=== PATIENT | female | born 1980 | race Caucasian/White ===

== ENCOUNTER → 2017-04-05 | Outpatient (CLI) | payer OTHER ==
[~2017-04-05] MED LIST: BISA5EC PO; CEPH500 PO; LAVAP17G PO; MECL25 PO; MEDR10 PO; OMEP40CA12 PO; OXYACE5T PO; POLY17UD PO; PSYL5.85P PO; RXTRAM50 PO; SERT25; SERT25 PO; TRAM50 PO
[2017-04-07 11:21] LABS: HPV Genotype 16 Not Detected (NOTDET); HPV Genotype 18 Not Detected (NOTDET)
[2017-04-15 16:07] LABS: HPV High Risk Other Not Detected (NOTDET)
== END | disposition home or self-care (01) ==
LOC: OLS 16:27
PROVIDERS: Obstetrics & Gynecology Gynecology
DX: Z12.4 Encounter for screening for malignant neoplasm of cervix (principal)
CPT/HCPCS: 87624; G0123

== ENCOUNTER 2021-12-28 16:13 | Inpatient (IN) | payer OTHER ==
[~2021-12-28] VITALS: Ht 175.3 cm; Wt 76.3 kg
[2021-12-28 17:50] LABS: BASOPHILS ABSOLUTE AUTO 0.04 K/mm3 (0.00-0.23); BASOPHILS PERCENT AUTO 0 % (0-2); EOSINOPHILS ABSOLUTE AUTO 0.07 K/mm3 (0.00-0.68); EOSINOPHILS PERCENT AUTO 1 % (0-6); Hematocrit 32.1 % (33.0-51.0); IMMATURE GRAN ABSOLUTE AUTO 0.07 K/mm3 (0.00-0.10); IMMATURE GRAN PERCENT AUTO 1 % (0-1); LYMPHOCYTES ABSOLUTE AUTO 2.47 K/mm3 (0.84-5.20); LYMPHOCYTES PERCENT AUTO 17 % (21-46); MONOCYTES ABSOLUTE AUTO 0.88 K/mm3 (0.16-1.47); MONOCYTES PERCENT AUTO 6 % (4-13); Mean Corpuscular HGB 29.3 pg (26.0-34.0); Mean Corpuscular HGB Conc 34.3 g/dL (31.5-36.5); Mean Corpuscular Volume 85 fL (80-100); Mean Platelet Volume 11.2 fL (9.1-12.4); NEUTROPHILS ABSOLUTE AUTO 10.84 K/mm3 (1.96-9.15); NEUTROPHILS PERCENT AUTO 75 % (41-73); Platelet Count 239 K/mm3 (150-400); RDW Coefficient Variation 12.8 % (11.7-14.2); RDW Standard Deviation 39.4 fL (35.1-46.3); Red Blood Cell Count 3.76 M/mm3 (3.80-5.20); White Blood Cell Count 14.37 K/mm3 (4.00-11.30)
[2021-12-28] MEDS ORDERED: PRENATAL TABLE1 EAC2 (18:13)
[2021-12-28] MEDS ORDERED: DOC250 PO (18:14)
[2021-12-29 10:08] LABS: PCO2 Cord - Venous 40.9 mmHg (40-50); PO2 Cord - Venous 19.8 mmHg (28-32); pH Umbilical Cord - Venous 7.38 (7.26-7.35)
--- NOTE | 2021-12-29 11:37 | NUR ---
NB WITH TRANSPORT TEAM IN ROOM VISITING MOM.
[2021-12-29] MEDS ORDERED: IBUP800 PO (11:43)
--- NOTE | 2021-12-29 12:32 | NUR ---
PT IS RESTING. WORKING ON DISCHARGE PAPERWORK.
--- NOTE | 2021-12-29 15:47 | NUR ---
andreina is picking up baby at 1600
--- NOTE | 2021-12-29 15:50 | NUR ---
Upon receivinga request from TRA, KASIE Perdue, that the pt wanted her baby blessed, I met Nette in the nursery. The baby, Prince Naidu, is still born. I baptize and bless [place] and sign a document certifying that he has been blessed. I release Prince back to Nette who has [facility] in transit. I will continue to remain available.
== END 2021-12-29 18:20 | disposition home or self-care (01) | DRG 807 ==
LOC: OBS 16:13 → BC 16:14 → OBS 17:06 → BC 17:08
PROVIDERS: ADMIT Advanced Practice Midwife
PROC: 10E0XZZ Delivery of Products of Conception, External Approach (ICD-10-PCS; principal; 2021-12-29)
PROC: 10907ZC Drainage of Amniotic Fluid, Therapeutic from Products of Conception, Via Natural or Artificial Opening (ICD-10-PCS; 2021-12-29)
PROC: 3E0234Z Introduction of Serum, Toxoid and Vaccine into Muscle, Percutaneous Approach (ICD-10-PCS; 2021-12-29)
DX: O60.14X0 Preterm labor third trimester with preterm delivery third trimester, not applicable or unspecified (principal); Z37.0 Single live birth; Z3A.30 30 weeks gestation of pregnancy; Z23 Encounter for immunization
CPT/HCPCS: 36415; 59025; 76815; 82803; 85025; 85460; 86850; 86870; 86900; 86901; 88307; 90715; 96372; A9270; J0290; J0702; J1885; J2210; J2590; J2791; J3475; J7120

== ENCOUNTER → 2023-02-07 | Outpatient (CLI) | payer OTHER ==
[~2023-02-07] MED LIST changes: +DOC250 PO; +IBUP800 PO; +PRENATAL TABLE1 EAC2
[2023-02-08 19:10] LABS: HBSAG SCREEN Negative (Negative); HCV ANTIBODY Non Reactive (Non Reactive); HIV AB/P24 AG SCREEN Non Reactive (Non Reactive)
[2023-02-10 04:10] LABS: CHLAMYDIA BY NAA Negative (Negative); GONOCOCCUS BY NAA Negative (Negative); TRICH VAG BY NAA Negative (Negative)
== END ==
LOC: LAB 10:00 → LAB SHORT 10:00
PROVIDERS: Registered Nurse Community Health
DX: Z04.41 Encounter for examination and observation following alleged adult rape (principal); Z11.3 Encounter for screening for infections with a predominantly sexual mode of transmission; Z20.2 Contact with and (suspected) exposure to infections with a predominantly sexual mode of transmission
CPT/HCPCS: 86592; 86803; 87070; 87205; 87340; 87389; 87491; 87591; 87661

== ENCOUNTER 2023-12-20 07:14 | Emergency (ER) | payer OTHER ==
[~2023-12-20] VITALS: Ht 172.7 cm; Wt 61.2 kg
[2023-12-20] MEDS ORDERED: Ketorolac Tromethamine 30mg Vial IV ONE (08:50)
[2023-12-20] MEDS ORDERED: NS 1,000 ML IV SCH (08:50)
[2023-12-20] MEDS ORDERED: Methocarbamol 500 MG Tab PO ONE (08:50)
[2023-12-20 09:43] LABS: Source, Urine Clean Catch
[2023-12-20 09:46] LABS: Albumin, Blood 3.7 g/dL (3.4-5.0); Albumin/Globulin Ratio 1.1 (0.8-1.8); Bilirubin, Total 0.6 mg/dL (0.1-1.0); Bun/Creatinine Ratio 9.7 (12.0-20.0); C-REACTIVE PROTEIN, EXT RANGE 3.01 mg/dL (0.000-0.300); Calcium, Blood 8.9 mg/dL (8.5-10.1); Creatinine, Blood 0.72 mg/dL (0.40-1.00); Globulin, Blood 3.3 g/dL (2.2-4.0); Potassium, Blood 4.2 mmol/L (3.5-5.5)
[2023-12-20 09:53] LABS: Appearance, Urine Clear (Clear); Bilirubin, Urine Neg (Neg); Blood, Urine 1+ (Neg); Color, Urine Yellow (P-Yellow); Glucose Qualitative, Urine Neg (Neg); Ketones, Urine Neg (Neg); Leukocyte Esterase, Urine Neg (Neg); Nitrite, Urine Neg (Neg); Protein, Urine Neg (Neg); Urobilinogen, Urine NORM (Normal)
[2023-12-20 09:58] LABS: Influenza A, PCR NEGATIVE (NEGATIVE); Influenza B, PCR NEGATIVE (NEGATIVE); Resp Syncytial Virus, PCR NEGATIVE (NEGATIVE)
[2023-12-20 10:01] LABS: White Blood Cells, Urine 0-2 /hpf (0-5)
[2023-12-20 10:02] LABS: Bacteria Rare /hpf; Squamous Epithelial Cells Rare /hpf (Few)
[2023-12-20 10:22] LABS: SARS-Cov-2 (COVID-19) PCR, MMC POSITIVE (NEGATIVE)
[2023-12-20 10:43] VITALS: BP 120/73
[2023-12-20 11:03] LABS: BASOPHILS ABSOLUTE AUTO 0.04 K/mm3 (0.00-0.23); BASOPHILS PERCENT AUTO 1 % (0-2); EOSINOPHILS ABSOLUTE AUTO 0.05 K/mm3 (0.00-0.68); EOSINOPHILS PERCENT AUTO 1 % (0-6); Hemoglobin 12.6 g/dL (11.5-16.0); IMMATURE GRAN ABSOLUTE AUTO 0.01 K/mm3 (0.00-0.10); IMMATURE GRAN PERCENT AUTO 0 % (0-1); LYMPHOCYTES ABSOLUTE AUTO 0.75 K/mm3 (0.84-5.20); LYMPHOCYTES PERCENT AUTO 16 % (21-46); MONOCYTES ABSOLUTE AUTO 0.56 K/mm3 (0.16-1.47); MONOCYTES PERCENT AUTO 12 % (4-13); Mean Corpuscular HGB 28.6 pg (26.0-34.0); Mean Corpuscular HGB Conc 33.2 g/dL (31.5-36.5); Mean Corpuscular Volume 86 fL (80-100); Mean Platelet Volume 11.2 fL (9.1-12.4); NEUTROPHILS ABSOLUTE AUTO 3.38 K/mm3 (1.96-9.15); NEUTROPHILS PERCENT AUTO 71 % (41-73); Platelet Count 208 K/mm3 (150-400); RDW Coefficient Variation 12.6 % (11.7-14.2); RDW Standard Deviation 39.9 fL (35.1-46.3); Red Blood Cell Count 4.41 M/mm3 (3.80-5.20); White Blood Cell Count 4.79 K/mm3 (4.00-11.30)
[2023-12-20] MEDS ORDERED: Robaxin750 MG PO ×2 (11:11→11:13)
== END 2023-12-20 11:14 | disposition home or self-care (01) ==
LOC: ER 07:14
PROVIDERS: Student in an Organized Health Care Education/Training Program
DX: U07.1 COVID-19 (principal); M79.10 Myalgia, unspecified site; F17.200 Nicotine dependence, unspecified, uncomplicated
CPT/HCPCS: 0241U; 80053; 81001; 85025; 86140; 96361; 96374; 99283-25; A9270; J1885; J7030